=== PATIENT | female | born 1995 | race Caucasian/White ===

== ENCOUNTER 2021-09-01 17:27 | Emergency (ER) | payer MEDICAID, SELFPAY ==
[2021-09-01 17:30] VITALS: BP 145/93; PULSE 131; RESP 18; TEMP 37.1; O2SAT 98; BMI 26.9
[2021-09-01] MEDS: Ziprasidone IM 20 MG/ML VIAL IM ×2 (17:45→18:14)
--- NOTE | 2021-09-01 17:49 | EX.ED.VIS.PS ---
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 She has flight of ideas. Pressured speech. And she really gives no history. At this time we have no past medical history on her. [facility] Medical History unable to obtain Home Medications Unobtainable 09/01/21 [History Last Taken Unknown] Allergy/AdvReac Type Severity Reaction Status Date / Time No Known Allergies Allergy Verified 09/01/21 17:29 Surgical History unable to obtain Social History Smoking Status: Unknown if ever smoked ROS ROS ED ROS Narrative Patient denies. However history is very limited. Review of Systems ROS Unobtainable: due to mental status EXAM Physical Exam Narrative Exam Narrative: 19-year-old female vital signs are stable she is tachycardic with a heart rate 131. Pulse ox 90% she is afebrile. She does not look septic or toxic. She is rambling. Flight of ideas. Pressured speech. Cursing. At times gets aggressive. HEENT exam unremarkable atraumatic. Moist mucous membranes. Neck nontender. No lymphadenopathy. No meningismus. Lungs clear to auscultation bilaterally. Heart tachycardic no murmur. Abdomen soft nontender normal bowel sounds no peritoneal signs. Extremities moves all 4. Neurologically she is awake. She is speaking. She is moving all 4 extremities. She is not making any sense. Const Vital Signs: 09/01/21 17:30 09/01/21 19:06 09/01/21 22:28 Temperature 98.7 F Temperature Source Temporal Pulse Rate 131 H Respiratory Rate 18 18 16 Blood Pressure 145/93 H Blood Pressure Mean 110 Pulse Ox 98 Oxygen Delivery Method Room Air Positive well nourished and well developed; Negative for obese, cachectic, contractures or unkempt General Appearance ED: well developed and irritable; Negative for unkempt, cachectic, contractures, NAD or pallor Nutritional Appearance: Negative for cachectic or obese HEENT Reports moist mucous membranes normocephalic and atraumatic; Negative for trauma or tenderness Eyes PERRL and EOMs intact bilaterally General Eye ED: Negative for pale conjunctiva or scleral icterus Neck no lymphadenopathy, supple and no JVD General: Negative for tenderness Resp normal respiratory effort and clear to auscultation bilaterally Auscultation: Negative for rales, rhonchi or wheezes Cardio S1 normal heart sound, S2 normal heart sound and no murmurs Rate: tachycardic; Negative for regular rate Rhythm: regular rhythm GI non-tender, non-distended and no masses Inspection: Negative for abdominal distention Auscultation: normoactive bowel sounds Palpation: soft; Negative for tender or guarding Back/Spine no CVA tenderness General Back: Negative for CVA tenderness Cervical Spine: Negative for cervical spine tenderness Thoracic Spine / Upper Back: Negative for thoracic spinal tenderness Extremity Negative for normal to inspection General Extremety ED: Negative for edema or tenderness General Extremity: Negative for edema Neuro No oriented x3 Sensorium / Orientation: alert, oriented to person and confused; Negative for oriented to place, lethargic or stuporous Motor Exam: strength 5/5 throughout Psych activity/motor behavior normal; Negative for thought process normal, cooperative, affect normal or speech normal Appearance: grossly normal; Negative for unkempt Attitude: bizarre, uncooperative, agitated, aggressive and hostile Activity / Motor Behavior: appropriate eye contact Speech: normal speech and excessive Mood & Affect: irritable; Negative for tearful Thought Process: No normal thought process, incoherent, disorganized and flight of ideas Skin General Skin Exam: Negative for jaundice or pallor Lesions: no lesions Rashes: no rashes and No rashes noted Trauma: Negative for abrasion, laceration or puncture Wounds: Negative for amputation MDM MDM MDM Narrative Medical decision making narrative: 27-year-old female seems underlying psychiatric disorders been exacerbated. She is flight of ideas and pressured speech clinically does not look ill. She undergo mental health evaluation in the place. Labs are pending. She will be given IM Geodon. Repeat exam at 9:20 PM patient doing well. Resting after the second dose of Geodon. Lab Data Attestation: I reviewed the patient's lab results. Lab results narrative: CBC shows a white count 1.2. Hemoglobin 12. Chemistries unremarkable gap 9. Creatinine of 1.1. Glucose 90. Alcohol 4. Serum test negative. Tox screen positive for vitamins methamphetamines and marijuana.. Covid negative. Labs: Laboratory Results - last 24 hr 09/01/21 09/01/21 09/01/21 18:43 18:43 18:43 WBC 11.2 H RBC 4.24 Hgb 12.7 Hct 37.9 MCV 89.4 MCH 30.0 MCHC 33.5 RDW Std Deviation 39.5 RDW Coeff of Terrance 12.2 Plt Count 432 MPV 9.5 Immature Gran % (Auto) 1.300 H Neut % (Auto) 64.5 Lymph % (Auto) 17.2 L Powell % (Auto) 16.2 H Eos % (Auto) 0.3 Baso % (Auto) 0.5 Absolute Neuts (auto) 7.2 Absolute Lymphs (auto) 1.92 Nucleated RBC % 0 Differential Comment Diff Path Review May foll Platelet Estimate ADEQUATE RBC Morphology NORM C+C Sodium 137 Potassium 3.7 Chloride 103 Carbon Dioxide 25.0 Anion Gap 9 BUN 21 H Creatinine 1.10 H Estim Creat Clear Calc 71.28 Est GFR (MDRD) Af Amer TNP Est GFR (MDRD) Non-Af TNP BUN/Creatinine Ratio 19.1 Glucose 90 Calcium 9.0 Serum , Qual Urine Opiates Screen Urine Methadone Screen Ur Barbiturates Screen Ur Phencyclidine Scrn Ur Amphetamines Screen U Methamphetamin-MDMA U Benzodiazepines Scrn Urine Cocaine Screen U Cannabinoids Screen Ur Drug Screen Comment Ethyl Alcohol 4.0 09/01/21 09/01/21 18:43 22:17 WBC RBC Hgb Hct MCV MCH MCHC RDW Std Deviation RDW Coeff of Terrance Plt Count MPV Immature Gran % (Auto) Neut % (Auto) Lymph % (Auto) Powell % (Auto) Eos % (Auto) Baso % (Auto) Absolute Neuts (auto) Absolute Lymphs (auto) Nucleated RBC % Differential Comment Diff Path Review Platelet Estimate RBC Morphology Sodium Potassium Chloride Carbon Dioxide Anion Gap BUN Creatinine Estim Creat Clear Calc Est GFR (MDRD) Af Amer Est GFR (MDRD) Non-Af BUN/Creatinine Ratio Glucose Calcium Serum , Qual NEGATIVE Urine Opiates Screen NEGATIVE Urine Methadone Screen NEGATIVE Ur Barbiturates Screen NEGATIVE Ur Phencyclidine Scrn NEGATIVE Ur Amphetamines Screen POSITIVE H U Methamphetamin-MDMA POSITIVE H U Benzodiazepines Scrn NEGATIVE Urine Cocaine Screen NEGATIVE U Cannabinoids Screen POSITIVE H Ur Drug Screen Comment Ethyl Alcohol Discharge Plan Triage Chief Complaint: Mental Health ED Provider: Bao Tomlin Dx/Rx/DC Orders Clinical Impression: Acute exacerbation of psychosis Prescriptions: No Action Unobtainable RF: 0 Primary Care Provider: NOT,DEFINED Referrals: NOT,DEFINED [Primary Care Provider] - Disposition Disposition: Psychiatric Hospital or Unit
[2021-09-01 19:06] VITALS: RESP 18
[2021-09-01 19:24] LABS: Absolute Lymphocyte Count 1.92 X10^3/uL (0.83-4.51); Absolute Neutrophil Count 7.2 X10^3/uL (2.0-7.7); Basophil# 0.06 X10^3/uL; Basophil% 0.5 % (0-1); Eosinophil# 0.03 X10^3/uL; Eosinophils% 0.3 % (0-5); Hematocrit 37.9 % (37-47); Hemoglobin 12.7 g/dL (12.0-15.0); Lymphocyte # 1.92 X10^3/ul (0.83-4.51); Lymphocyte % 17.2 % (19-41); Mean Corp Hgb Conc 33.5 g/dL (32-36); Mean Corpuscular Volume 89.4 fL (81-99); Mean Platelet Vol. 9.5 fl (6.2-12.0); Monocyte# 1.81 X10^3/uL; Monocyte% 16.2 % (0-10); NRBC Flagged by Analyzer 0 % (0-5); Neutrophil % 64.5 % (47-70); POSITIVE DIFFERENTIAL YES; Platelet Count 432 K/mm3 (150-450); RBC Distribution Width CV 12.2 % (11.6-14.6); RBC Distribution Width SD 39.5 fl (35.1-43.9); Red Blood Count 4.24 M/mm3 (4.2-5.4); White Blood Count 11.2 K/mm3 (4.4-11.0)
[2021-09-01 19:30] LABS: Differential Indicated SCAN CRITERIA MET
--- NOTE | 2021-09-01 19:39 | ED.RN ---
attempted to straight cath pt for urine sample, pt became aggressive with staff. staff excited the room and will attempt later.
[2021-09-01 19:47] LABS: Anion Gap 9 (5-15); BUN 21 mg/dL (7-18); BUN/Creat Ratio 19.1 RATIO (10-20); Chloride 103 mmol/L (98-107); Estimated Creatinine Clearance 71.28 ml/min; Glucose 90 mg/dL (74-106); Potassium 3.7 mmol/L (3.5-5.1); Sodium Level 137 mmol/L (136-145)
[2021-09-01 19:57] LABS: Internal QC Validated? YES +Cl - CLEAR BKGD; Pregnancy, Serum, hCG Quali. NEGATIVE Negative
[2021-09-01 20:08] LABS: Platelet Estimate ADEQUATE (ADEQ); Red Cell Morphology NORM C+C NORMAL (NORM C&C)
[2021-09-01 22:28] VITALS: RESP 16
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
[2021-09-01 22:49] LABS: Amphetamine Urine VISTA POSITIVE (<1000 ng/mL); Barbiturate Urine VISTA NEGATIVE (< 200 ng/mL); Benzodiazepine Urine VISTA NEGATIVE (< 200 ng/mL); Cocaine Urine VISTA NEGATIVE (< 300 ng/mL); Ecstacy Urine VISTA POSITIVE (< 500 ng/mL); Methadone Urine VISTA NEGATIVE (< 300 ng/mL); PCP Urine VISTA NEGATIVE (< 25 ng/mL); THC Urine VISTA POSITIVE (< 50 ng/mL); Vista UDS pH Range 5
[2021-09-02] VITALS (18 sets, daily range): BP systolic 99–106; BP diastolic 62–64; PULSE 78–103; RESP 14–16; TEMP 36.3; O2SAT 99–100
--- NOTE | 2021-09-02 05:38 | NURSING ---
CALLED [facility] AT [phone]
[2021-09-02] MEDS: Ziprasidone IM 20 MG/ML VIAL IM (10:04)
--- NOTE | 2021-09-02 10:27 | ED.RN ---
HIEN FROM [facility] CALLED. SHE SENT INFORMATION TO [facility] AND THEY ARE ASSESSING THE PATIENT FOR ADMISSION
[2021-09-02] MEDS: DiphenhydrAMINE 25 MG Capsule 50 MG PO (20:57)
[2021-09-02] MEDS: Acetaminophen 500 MG Tablet 1000 MG PO (20:57)
[2021-09-03] VITALS (10 sets, daily range): BP systolic 116; BP diastolic 68; PULSE 83; RESP 14–16
--- NOTE | 2021-09-03 05:17 | ED.RN ---
CALLED [facility] MULTIPLE TIMES FOR A UPDATE, BEFORE RAMÓN LEFT SHE SAID THAT THEY WAS PENDING AT [facility], SHE CALLED LATER IN THE NIGHT AND ASKED IF THEY HAD CALLED WITH ACCEPTANCE YET AND I SAID NO. I HAVE TRIED CALLING [facility] AT 1:54 AM, 3:28AM AND ALSO 5:17AM FOR A UPDATE. THE FIRST TIME I CALLED THEY SAID WE WILL PAGE HER, THE SECOND TIME I CALLED [facility] WITH A PATIENT, THIRD TIME I CALLED THEY WILL PAGE HER. CHARGE NURSE IS AWARE.
--- NOTE | 2021-09-03 08:55 | ED.RN ---
spoke with rod sotomayor and they requested more information to be sent by our facility. rin and radha crain faxed. per rod sotomayor they will review and call back
--- NOTE | 2021-09-03 09:46 | ED.RN ---
Shreya from [facility]. Pt is accepted. Pt going to the [facility] Unit. nurse to germania [phone]
[2021-09-04 14:46] LABS: Pathologist Review Reviewed
== END 2021-09-03 10:45 ==
PROVIDERS: Emergency Provider Emergency Medicine
DX: F29 Unspecified psychosis not due to a substance or known physiological condition (principal)
CPT/HCPCS: 80048; 80307; 82077; 84703; 85025; 87426; 96372; 99285; J3486

== ENCOUNTER 2022-08-08 14:01 | Outpatient (REF) | payer SELFPAY ==
[2022-08-08 14:03] VITALS: BP 116/77; PULSE 84; RESP 14; TEMP 36.3; O2SAT 99; BMI 28.8
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
[2022-08-08 15:06] LABS: Absolute Lymphocyte Count 3.13 X10^3/uL (0.83-4.51); Basophil# 0.03 X10^3/uL; Basophil% 0.4 % (0-1); Eosinophil# 0.07 X10^3/uL; Eosinophils% 0.9 % (0-5); Hematocrit 40.8 % (37-47); Hemoglobin 13.4 g/dL (12.0-15.0); Lymphocyte # 3.13 X10^3/ul (0.83-4.51); Mean Corp Hgb Conc 32.8 g/dL (32-36); Mean Corpuscular Volume 85.2 fL (81-99); Monocyte# 0.73 X10^3/uL; Monocyte% 9.1 % (0-10); NRBC Flagged by Analyzer 0 % (0-5); Neutrophil # 4.03 X10^3/uL (2.7-7.7); Neutrophil % 50.2 % (47-70); Platelet Count 457 K/mm3 (150-450); RBC Distribution Width CV 12.8 % (11.6-14.6); RBC Distribution Width SD 39.4 fl (35.1-43.9); Red Blood Count 4.79 M/mm3 (4.2-5.4)
[2022-08-08] MEDS: 0.9% Normal Saline 1,000 ML 1000 ML IV (15:10)
[2022-08-08] MEDS: Diphth,Pertuss(Acell),Tet Vac 0.5 ML Vial IM (15:10)
[2022-08-08 15:11] LABS: Color, Urine Yellow (Yellow); Glucose, Dipstick Normal (Normal); Ketone-Dipstick 5 mg/dl (Negative); Leukocyte Esterase-Dipstick 25 /ul (Negative); Nitrite-Dipstick Negative (Negative); Occult Blood-Urine 10 /ul (Negative); Protein-Dipstick 15 mg/dl (Negative); Specific Gravity, Urine 1.025 (1.002-1.030); Urine Bilirubin Dipstick Negative (Negative); Urine Clarity Sl. Cloudy (Clear); Urine Urobilinogen 1 mg/dl (Normal)
[2022-08-08 15:17] LABS: Bacteria 1+ /hpf (None Seen); Mucous, Urine 1+ /hpf (<or=2+); Red Blood Cells-Urine 0-5 SEEN /hpf (0-5); Squamous Epithelial Cells - UA 0-5 SEEN /hpf (5-10); White Blood Cells 0-5 SEEN /hpf (0-5)
[2022-08-08 15:18] LABS: Internal QC Validated? YES +Cl - CLEAR BKGD; Pregnancy, Serum, hCG Quali. NEGATIVE Negative
[2022-08-08 15:19] LABS: Anion Gap 6 (5-15); BUN 13 mg/dL (7-18); BUN/Creat Ratio 14.1 RATIO (10-20); Chloride 107 mmol/L (98-107); Creatinine, Serum 0.92 mg/dL (0.55-1.02); EST Glomerular Filtration Rate 77 mL/min (>60); Est Glom Filt Rate - Afr Amer 93 mL/min (>60); Estimated Creatinine Clearance 81.92 ml/min; Glucose 106 mg/dL (74-106); Potassium 4.8 mmol/L (3.5-5.1); Sodium Level 138 mmol/L (136-145)
[2022-08-08 16:02] VITALS: BP 124/78; PULSE 78; RESP 14; O2SAT 98
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
== END 2022-08-08 17:24 | disposition home or self-care (01) ==
LOC: ED 14:01
PROVIDERS: Visit Provider Emergency Medicine
DX: S31.119D Laceration without foreign body of abdominal wall, unspecified quadrant without penetration into peritoneal cavity, subsequent encounter (principal); X58.XXXD Exposure to other specified factors, subsequent encounter
CPT/HCPCS: 81001; Q9967; 85025; 80048; 84703; 74177; J7030; A4216

== ENCOUNTER 2024-01-10 14:57 | Emergency (ER) | payer MEDICAID, SELFPAY ==
[2024-01-10 14:58] VITALS: BP 107/80; PULSE 117; RESP 22; TEMP 36.3; O2SAT 99; BMI 33.3
--- NOTE | 2024-01-10 15:43 | EDS_ITS ---
HPI HPI - Psych History of Present Illness Chief Complaint: Mental Health Informant: patient Narrative Narrative: Patient states that she is here for medical clearance to go to [facility]. She states she was court ordered to report to [facility] within the next 24 hours and was told she needed to come here for medical clearance. She does have a history of schizophrenia. She does report recent changes to her medications but states she still feels that they need to be adjusted. [facility] Medical History (Updated 01/10/24 @ 17:[address] Ivy Izquierdo MD) Schizophrenia Home Medications quetiapine 50 mg tablet 50 mg PO QHS 01/10/24 [History Last Taken Unknown] Allergy/AdvReac Type Severity Reaction Status Date / Time No Known Allergies Allergy Verified 01/10/24 14:58 Social History (Updated 01/10/24 @ 15:[address] Ivy Izquierdo MD) Smoking Status: Current every day smoker tobacco type: cigarettes substance use type: amphetamines ROS ROS ED Constitutional Constitutional ED: Denies chills or fever(s) Eyes Eyes: Denies discharge from eye(s) ENT ENT ED: Denies discharge from eye(s), rhinorrhea or sore throat Cardiovascular Cardiovascular: Denies chest pain or palpitations Respiratory/Chest Respiratory/Chest: Denies cough or dyspnea Gastrointestinal Gastrointestinal: Denies abdominal pain, nausea or vomiting Musculoskeletal Musculoskeletal: Denies back pain or extremity pain Integumentary Denies Abrasions or rash Neurologic Neurologic: Denies headache(s) or weakness Psychiatric Psychiatric: Reports anxiety; Denies depression Allergic/Immunologic Allergic/Immunologic ED: Denies lip swelling or urticaria EXAM Physical Exam Const Vital Signs: 01/10/24 14:58 Temperature 97.3 F L Temperature Source Temporal Pulse Rate 117 H Respiratory Rate 22 H Blood Pressure 107/80 Blood Pressure Mean 89 Pulse Ox 99 Oxygen Delivery Method Room Air Positive well nourished and well developed General Appearance ED: well developed HEENT Reports moist mucous membranes Eyes EOMs intact bilaterally Resp normal respiratory effort and clear to auscultation bilaterally Cardio Rate: regular rate Rhythm: regular rhythm GI non-tender Auscultation: hypoactive bowel sounds Palpation: soft Extremity normal to inspection Neuro oriented x3 and no sensory deficits noted Sensorium / Orientation: alert Motor Exam: strength 5/5 throughout Psych mental status grossly normal Psych Narrative: Pressured speech MDM MDM MDM Narrative Medical decision making narrative: Lab work for medical clearance to [facility] is obtained along with COVID test and EKG which they require. I spoke with social work as patient states she was supposed to just have blood work drawn and then report to [facility] for admissio n. Lab Data Attestation: I reviewed the patient's lab results. Labs: Laboratory Results - last 24 hr 01/10/24 01/10/24 16:00 16:04 WBC 7.8 RBC 4.27 Hgb 12.8 Hct 37.7 MCV 88.3 MCH 30.0 MCHC 34.0 RDW Std Deviation 37.1 RDW Coeff of Terrance 11.6 Plt Count 320 MPV 8.9 Immature Gran % (Auto) 0.500 Neut % (Auto) 53.6 Lymph % (Auto) 33.7 [place]on % (Auto) 9.5 Eos % (Auto) 2.3 Baso % (Auto) 0.4 Absolute Neuts (auto) 4.2 Absolute Lymphs (auto) 2.62 Nucleated RBC % 0 Sodium 137 Potassium 3.8 Chloride 107 Carbon Dioxide 24.0 Anion Gap 6 BUN 17 Creatinine 0.77 Estim Creat Clear Calc 115.88 Est GFR (MDRD) Af Amer 113 Est GFR (MDRD) Non-Af 93 BUN/Creatinine Ratio 22.0 H Glucose 103 Calcium 8.9 Total Bilirubin 0.30 Direct Bilirubin 0.07 AST 30 ALT 80 H Alkaline Phosphatase 131 H Total Protein 6.9 Albumin 3.4 Globulin 3.5 Serum , Qual NEGATIVE Urine Opiates Screen NEGATIVE Urine Methadone Screen NEGATIVE Ur Barbiturates Screen NEGATIVE Ur Phencyclidine Scrn NEGATIVE Ur Amphetamines Screen POSITIVE H MDMA (Ecstasy) Screen POSITIVE H U Benzodiazepines Scrn NEGATIVE Urine Cocaine Screen NEGATIVE U Cannabinoids Screen POSITIVE H Ur Drug Screen Comment Ethyl Alcohol 4.0 Treatment and Re-Evaluation Narrative: CBC and chemistry studies are unremarkable. LFTs significant for an ALT of 80 and an alk phos of 131. test is negative. EtOH is negative. Talk screen is positive for amphetamines, MDMA, cannabinoids. EKG is sinus tachycardia at 110 with no acute ischemia. COVID test is negative. Social work was able to speak with [facility]. After multiple phone calls they were able to obtain the court order. She is able to go voluntarily and we will fax the information to [facility]. Patient be discharged at this time. Discharge Plan Triage Chief Complaint: Mental Health ED Provider: Ivy Izquierdo Dx/Rx/DC Orders Clinical Impression: Medical clearance for psychiatric admission, Schizophrenia Instructions: ED Schizophrenia, Paranoid Type Prescriptions: No Action quetiapine 50 mg tablet 50 mg PO QHS Referrals: JOSÉ LUIS VEGA [Other] Activity Restrictions/Additional Instructions: You are medically cleared for psychiatric admission at [facility]. We will fax your test results to them. Disposition Disposition: Home, Self Care
--- NOTE | 2024-01-10 15:47 | ED.RN ---
NO OLD EKG
[2024-01-10 16:11] LABS: Absolute Lymphocyte Count 2.62 X10^3/uL (0.83-4.51); Absolute Neutrophil Count 4.2 X10^3/uL (2.0-7.7); Basophil# 0.03 X10^3/uL; Basophil% 0.4 % (0-1); Eosinophil# 0.18 X10^3/uL; Eosinophils% 2.3 % (0-5); Hematocrit 37.7 % (37-47); Hemoglobin 12.8 g/dL (12.0-15.0); Lymphocyte # 2.62 X10^3/ul (0.83-4.51); Lymphocyte % 33.7 % (19-41); Mean Corpuscular Volume 88.3 fL (81-99); Mean Platelet Vol. 8.9 fl (6.2-12.0); Monocyte# 0.74 X10^3/uL; Monocyte% 9.5 % (0-10); NRBC Flagged by Analyzer 0 % (0-5); Neutrophil # 4.16 X10^3/uL (2.7-7.7); Neutrophil % 53.6 % (47-70); Platelet Count 320 K/mm3 (150-450); RBC Distribution Width CV 11.6 % (11.6-14.6); RBC Distribution Width SD 37.1 fl (35.1-43.9); Red Blood Count 4.27 M/mm3 (4.2-5.4); White Blood Count 7.8 K/mm3 (4.4-11.0)
[2024-01-10 16:29] LABS: AST(SGOT) 30 U/L (15-37); Alanine Aminotransfer ALT/SGPT 80 U/L (13-56); Albumin, Serum 3.4 g/dL (3.2-5.0); Alkaline Phosphatase 131 U/L (45-117); Anion Gap 6 (5-15); BUN 17 mg/dL (7-18); Bilirubin, Direct 0.07 mg/dL (0.00-0.30); Calcium,Total 8.9 mg/dL (8.5-10.1); Chloride 107 mmol/L (98-107); Creatinine, Serum 0.77 mg/dL (0.55-1.02); EST Glomerular Filtration Rate 93 mL/min (>60); Est Glom Filt Rate - Afr Amer 113 mL/min (>60); Estimated Creatinine Clearance 115.88 ml/min; Globulin 3.5 g/dL (2.2-4.2); Glucose 103 mg/dL (74-106); Potassium 3.8 mmol/L (3.5-5.1); Protein, Total 6.9 g/dL (6.4-8.2); Sodium Level 137 mmol/L (136-145)
[2024-01-10 16:37] LABS: Amphetamine Urine VISTA POSITIVE (<1000 ng/mL); Barbiturate Urine VISTA NEGATIVE (< 200 ng/mL); Benzodiazepine Urine VISTA NEGATIVE (< 200 ng/mL); Cocaine Urine VISTA NEGATIVE (< 300 ng/mL); Ecstacy Urine VISTA POSITIVE (< 500 ng/mL); Methadone Urine VISTA NEGATIVE (< 300 ng/mL); PCP Urine VISTA NEGATIVE (< 25 ng/mL); THC Urine VISTA POSITIVE (< 50 ng/mL); Vista UDS pH Range 5
[2024-01-10 17:01] LABS: Internal QC Validated? YES +Cl - CLEAR BKGD; Pregnancy, Serum, hCG Quali. NEGATIVE Negative
--- NOTE | 2024-01-10 17:18 | CM.ED ---
Social Work AMRITA notified that patient is here for medical clearance for [place] via court order. has no documentation or court order regarding patient. AMRITA contacted [facility] who also did not have a court order/probate. [facility] was able to contact patient supportive employment case manager, Oli Riggs, who confirmed that patient is supposed to have medical clearance to go to [place] per court hearing. Per crisis, supportive employment case manager reports this is not a detainment or warrant and patient was permitted to transport herself independently. Crisis faxed court document regarding order to go to [place], pt willingly agreed and this is regarding competency evaluation. There is no probate order or requirement for the hospital to detain/transport patient. Patient medically cleared and results will be faxed to [place]. [facility]. AMRITA introduced self and role to patient and notified her the medical clearance would be sent directly via fax. Pt understood and and thanked AMRITA. Amy Renteria ENGINE REPAIR SUPERVISOR, PROCESS OPERATOR
== END 2024-01-10 17:25 | disposition home or self-care (01) ==
PROVIDERS: Emergency Provider Emergency Medicine; Visit Provider Emergency Medicine
DX: F20.9 Schizophrenia, unspecified (principal); R00.0 Tachycardia, unspecified; F17.210 Nicotine dependence, cigarettes, uncomplicated; F41.9 Anxiety disorder, unspecified
CPT/HCPCS: 36415; 80048; 80076; 80307; 80320; 84703; 85025; 87635; 93005; 99282; G0480